=== PATIENT | female | born 1975 | race Caucasian/White ===

== ENCOUNTER → 2017-07-09 | Outpatient (CLI) | payer BC ==
[~2017-07-09] MED LIST: GADAVIST IV PRN
[2017-07-09 12:19] LABS: BASO % 0.2 %; BASO ABS # 0.01 K/uL (0-0.2); COMPLETE YES; EOS % 3.6 %; HEMATOCRIT 39.4 % (37-47); IG% 0.2 %; LYMPH ABS # 1.81 K/uL (1.2-3.4); MEAN CELL VOLUME 85.1 fL (80-100); MEAN CORPUSCULAR HEMOGLOBIN 30.5 pg (25-34); MEAN CORPUSCULAR HGB CONC 35.8 g/dl (32-36); MEAN PLATELET VOLUME 9.5 fL (7.4-10.4); MONO % 6.8 %; NEUT % 55.2 %; PLATELET COUNT 196 K/uL (130-400); RED BLOOD COUNT 4.63 M/uL (4.2-5.4); WHITE BLOOD COUNT 5.32 K/uL (4.8-10.8)
[2017-07-09 12:27] LABS: ALT/SGPT 15 U/L (12-78); AST/SGOT 11 U/L (15-37); BLOOD UREA NITROGEN 8 mg/dl (7-18); BUN/CREATININE RATIO 11.1 (10-20); CARBON DIOXIDE 28 mmol/L (21-32); CHLORIDE 108 mmol/L (98-107); CREATININE 0.74 mg/dl (0.60-1.20); GLUCOSE 81 mg/dl (70-99); POTASSIUM 3.9 mmol/L (3.5-5.1); SODIUM 140 mmol/L (136-145)
[2017-07-09 12:37] LABS: ALB/GLOB RATIO 1.1 (0.9-2); ALKALINE PHOSPHATASE 42 U/L (45-117)
--- NOTE | 2017-07-09 12:45 | DIAGNOSTIC IMAGING REPORT ---
BRAIN COMBO CLINICAL HISTORY: R51, H53.8 visual change COMPARISON STUDY: No previous studies for comparison. TECHNIQUE: Utilizing a 1.5 Janessa magnet and dedicated coil, multiplanar, multiecho imaging of the brain was performed pre and postcontrast administration. IV administration of 6 mL of Gadavist contrast was uneventful. FINDINGS: Several small foci of increased signal within the cerebral hemispheres bilaterally. These are considered nonspecific. No evidence for abnormal increase in signal on diffusion-weighted images. No abnormal postcontrast enhancement. Structures the sella and parasellar region are unremarkable. Internal artery canals are symmetric. IMPRESSION: Several nonspecific foci of increased signal throughout both cerebral hemispheres. 2. Statistically this is most consistent in a patient with history of chronic headache, with a demyelinating disorder considered to be significantly less likely given their distribution and configuration. 3. No evidence for abnormal postcontrast enhancement. The above report was generated using voice recognition software. It may contain grammatical, syntax or spelling errors. Electronically signed by: Zachary Barrera M.D. 07/09/2017 12:43 PM Dictated Date/Time: 07/09/2017 12:37 PM
[2017-07-09 13:09] LABS: LYME DISEASE AB IGG NEG (NEG); LYME DISEASE AB IGM NEG (NEG)
== END | disposition home or self-care (01) ==
LOC: C.MRI 11:04
PROVIDERS: ATTEND Nurse Practitioner Family
DX: R51 Headache (principal); H53.8 Other visual disturbances; M79.1 Myalgia

== ENCOUNTER → 2017-07-16 | Outpatient (CLI) | payer BC ==
--- NOTE | 2017-07-23 08:27 | CODING QUERY MEDICAL NECESSITY ---
SUPPORTING DIAGNOSIS NEEDED Farhana KAUFMAN, A supporting diagnosis is required for the test/procedure performed on this patient in order for us to be reimbursed by the patient's insurance. Please provide a supporting diagnosis for the following test/procedure listed below next to the test name along with your signature. *If there is no additional diagnosis for this patient that would support the following test/procedure please document that below next to the test/procedure. Test(s)/Procedure(s) that require a supporting diagnosis: * ([id number]) VITAMIN D ASSAY DIAGNOSIS: DATE OF SERVICE: 07/16/17 Provider Signature: Date: Thank you Vidal Zheng [facility] Information Management Once completed, please kindly fax back to [phone] For questions please call [phone]
== END | disposition home or self-care (01) ==
LOC: C.LAB 11:24
PROVIDERS: ATTEND Nurse Practitioner Family
DX: R25.2 Cramp and spasm (principal); R51 Headache; M54.2 Cervicalgia; Z86.19 Personal history of other infectious and parasitic diseases; M54.16 Radiculopathy, lumbar region